=== PATIENT | male | born 1965 | race Caucasian/White ===

== ENCOUNTER 2024-04-06 12:04 | Inpatient (IN) ==
[2024-04-06] MEDS ORDERED: OCTREOTIDE ACETATE 50 MCG in SYRINGE 9.5 ML IV STA (12:36)
--- NOTE | 2024-04-06 12:41 | Emergency Department Note ---
Impression & Plan Shock, Acute blood loss anemia, Acute hepatic failure, Acute renal failure, Hepatic encephalopathy, Alcoholism, Thrombocytopenia, Hypokalemia ED Provider Note NAME: JIMI CHAMBERS II AGE: 58 SEX: M : 1965 ARRIVES VIA: Walk-In INFORMANT: Patient ED PROVIDER(S): Jon oCx MD CHIEF COMPLAINT: Generalized weakness, lethargy, hypotension, alcoholism, bloody stool PLAN: Disposition: Admit MEDICAL DECISION MAKING: The patient is a 58-year-old gentleman with a past medical history of alcoholism which is longstanding who presents to the emergency department via walk-in accompanied by family for worsening generalized weakness, poor appetite and oral intake, syncope/near syncope over the past couple of weeks where the patient had refused to go see a medical provider but family reports they were finally able to convince him today. They report that the patient developed bloody stools over the past 24 to 48 hours and jaundice. The patient has been seen at [facility] and [facility] in the past but did not want to go to those facilities. They report that the patient may drink 1/5 of whiskey a day. However he has curbed his drinking over the past week due to not feeling well. They deny fevers, cough, congestion, vomiting. 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 On arrival the patient is ill-appearing but no acute distress, afebrile with hypotension in the 80s/50s but improving with IV fluid hydration though still guarded. He is overtly jaundiced with icterus. Abdomen is nondistended and nontender and is soft. Lungs are clear. There is no overt tremulousness or signs of alcohol withdrawal. He is awake but slightly somnolent. He is moving all extremities equally with generalized weakness. He is unable to stand independently out of the wheelchair. Rectal demonstrates maroon/red stool that is Hemoccult positive. EKG is negative for acute ischemia. Chest x-ray negative for acute cardiopulmonary process. WBC 10.6 K with neutrophilia but no left shift. H/H 8.6/24.1 with MCV of 108. INR 1.3. VBG without acidemia with pCO2 mildly below normal range at 37. Chemistry without metabolic acidosis with bicarbonate of 22. Acute renal failure is present with creatinine of 5.09 and BUN of 34. Sodium 127 without significant elevated glucose. Potassium 2.9 and Magnesium 1.9 with IV repletion initiated. Initial lactic acid 4.5 with repeat following 2 L of normal saline downtrending to 3.6. Ammonia is not elevated. UA demonstrates positive nitrites however no WBCs or bacteria and with epithelial cells present. Medical alcohol was 26.4 in the setting of alcoholism placing the patient at risk for alcohol withdrawal. Respiratory BioFire was negative. Given the patient acute renal failure noncontrast CT imaging was obtained with report pending. Patient was treated with 30cc/kg IVF with NSS and given persistence of low blood pressure in the setting of GI bleeding patient did consent for transfusion and so 1 unit of PRBCs initiated as well as 1 unit of platelets given platelets below 50K. Appreciate blood bank assistance who did order 2 additional units platelets for emergent delivery given the patient's critical status. Protonix and octreotide bolus and drip also initiated. IV thiamine administered. Empiric antibiotic coverage with IV Zosyn initiated. Case was discussed with Dr. Dallas, [facility] hospitalist, who evaluated the patient for admission. Subsequently CT of the head negative for acute abnormalities. CT of the chest negative for acute abnormalities. Advanced atherosclerotic disease of the coronary arteries and aorta is described. CT of the abdomen pelvis demonstrates features hepatic cirrhosis with mild perihepatic ascites and small amount of free fluid in the superior pelvis. Cholelithiasis is noted with numerous gallstones present. No description of ductal dilatation or evidence of large varicosities on this noncontrast study. Per Dr. Dallas's discussion with GI on-call, Dr Montenegro, recommendation were for transfer given his critical state as patient may require additional management not available at this facility such as TIPS. Appreciate consultations and recommendations. Initially, patient and family did agree with this plan and transfer process was [place] [facility] Levophed was initiated due to persistence of hypotension despite volume resuscitation. Albumin ordered per hospitalist service. Patient was accepted for transfer with bed assignment pending. However in the interim patient's family did further convene and had decided that they preferred to proceed with focus on comfort. They did discuss this with Dr. Dallas who will admit the patient to this facility for palliative care. Further management per admitting team. Triage Nursing notes reviewed and agree them. Prior/external medical records reviewed Vital Signs: reviewed Differential diagnosis: Sepsis, UTI, pneumonia, metabolic, electrolyte abnormalities, cardiac sources, intracerebral event, toxicologic, neurologic, as well as other pathologies. ER treatment provided: See below. Diagnostics interpreted by me: ECG: Sinus rhythm with PACs, 81 bpm, ST and T wave abnormality, no overt ST elevation, QTc 550, QRS 110. Cardiac Monitoring: An order for continuous cardiac monitoring was placed and demonstrated Sinus rhythm with PACs, 81 bpm,. Laboratory studies: See below Imaging studies: See below Consultation(s): Dr. Dallas, [facility] hospitalist. HPI: The patient is a 58-year-old gentleman with a past medical history of alcoholism which is longstanding who presents to the emergency department via walk-in accompanied by family for worsening generalized weakness, poor appetite and oral intake, syncope/near syncope over the past couple of weeks where the patient had refused to go see a medical provider but family reports they were finally able to convince him today. They report that the patient developed bloody stools over the past 24 to 48 hours and jaundice. The patient has been seen at [facility] and [facility] in the past but did not want to go to those facilities. They report that the patient may drink 1/5 of whiskey a day. However he has curbed his drinking over the past week due to not feeling well. They deny fevers, cough, congestion, vomiting. 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 ROS: See above HPI for pertinent positives & negatives. A total of 10 systems reviewed and were otherwise negative. VITALS:See Below PHYSICAL EXAMINATION: GENERAL: Awake, alert, ill-appearing, in no distress HENT: Normocephalic, atraumatic. Oropharynx with dry mucous membranes and otherwise unremarkable. EYES: Normal conjunctiva. Sclera icteric. NECK: Supple. No nuchal rigidity. FROM. No JVD. RESPIRATORY: Clear to auscultation. CARDIAC: Regular rate, normal rhythm. Extremities warm and well perfused. Pulses equal. ABDOMEN: Soft, non-distended. No tenderness to palpation. No rebound or guarding. RECTAL: Maroon, reddish stool. Perianal area is excoriated. MUSCULOSKELETAL: Chest examination reveals no tenderness. The back is symmetrical on inspection without obvious abnormality. There is no CVA tenderness to palpation. No joint edema. LOWER EXTREMITIES: Calves are equal size bilaterally and non-tender. No edema. No discoloration. NEURO: Somnolent but awake, watching TV. No focal sensory or motor deficits noted. No overt asterixis. No overt tremulousness. SKIN: Jaundice noted. ED COURSE: Critical Care: I have personally spent greater than 125 minutes of critical care time in the direct management of this patient. This includes bedside care, interpretation of diagnostic studies, and testing, discussion with consultants, patient, and family members, and other required patient management activities. This 125 minutes is in excess of all separately billable procedures. Jon Cox MD Past Med/Surg History Problem List (Updated 04/06/24 @ 23:52 by Jon Cox MD) Hypokalemia (Acute) Thrombocytopenia (Acute) Alcoholism (Acute) Acute hepatic failure (Acute) Hepatic encephalopathy (Acute) Shock (Acute) Acute blood loss anemia (Acute) Varices of other sites Acute renal failure (Acute) Social History Smoking Status: Current every day smoker Tobacco Type: Cigarettes Second Hand Exposure: Yes; Do You Dip or Chew Tobacco: Yes; Tobacco Cessation Education Requested by Patient: No Hx Alcohol Use: Yes Alcohol type: beer and hard liquor Hx Substance Use: No Preferred Language: Greenlandic Communication Ability: Impaired Nail Tech Required: No Beliefs That Will Affect Care: None Current Living Situation: Spouse and Family Other Information That Helps Us Care for You: No Feels Safe at Home: Yes Safety Concerns: Feels Safe At This Time Assistive Devices: Glasses Allergies Allergies Allergy/AdvReac Type Severity Reaction Status Date / Time No Known Allergies Allergy Unverified 04/06/24 15:48 Home Meds Home Medications Medication Instructions Recorded Confirmed cetirizine 10 mg tablet 10 mg PO UD 04/06/24 04/06/24 losartan 50 mg tablet 10 mg PO DAILY 04/06/24 04/06/24 Results & Data (ED) Vital Signs Vital Signs - 24 hr 04/06/24 12:15 04/06/24 12:33 04/06/24 12:35 Temperature 36.6 C Temperature Source Temporal Artery Scan Pulse Rate 94 H 82 82 Pulse Rate [Apical] Pulse Rate from SpO2 Sensor Pulse Rhythm Regular Respiratory Rate 18 18 Respiratory Effort / Characteristics Non-Labored Spontaneous Respiratory Depth Normal Respiratory Pattern Regular Blood Pressure 89/58 L Blood Pressure [Right Arm] Blood Pressure Mean 68 Blood Pressure Mean [Right Arm] Blood Pressure Position Blood Pressure Position [Right Arm] Pulse Oximetry 97 97 Oxygen Delivery Method Room Air Room Air Sepsis Recent Fever Within 48 Hours No Sepsis New/Unexplained Change in Mental Status N/A Sepsis Action Taken by Nursing No Action Required 04/06/24 12:48 04/06/24 13:30 04/06/24 14:00 Temperature Temperature Source Pulse Rate 76 Pulse Rate [Apical] 77 Pulse Rate from SpO2 Sensor 75 Pulse Rhythm Respiratory Rate 15 15 Respiratory Effort / Characteristics Non-Labored Spontaneous Respiratory Depth Normal Respiratory Pattern Blood Pressure 93/60 L Blood Pressure [Right Arm] 85/50 L Blood Pressure Mean 71 Blood Pressure Mean [Right Arm] 61 Blood Pressure Position Blood Pressure Position [Right Arm] Pulse Oximetry 95 93 Oxygen Delivery Method Room Air Room Air Sepsis Recent Fever Within 48 Hours Sepsis New/Unexplained Change in Mental Status Sepsis Action Taken by Nursing 04/06/24 14:21 04/06/24 15:00 04/06/24 15:15 Temperature Temperature Source Pulse Rate 82 Pulse Rate [Apical] 82 88 Pulse Rate from SpO2 Sensor 83 Pulse Rhythm Respiratory Rate 19 16 25 H Respiratory Effort / Characteristics Respiratory Depth Normal Respiratory Pattern Blood Pressure 96/51 L Blood Pressure [Right Arm] 72/44 L 109/63 Blood Pressure Mean 66 Blood Pressure Mean [Right Arm] 53 78 Blood Pressure Position Blood Pressure Position [Right Arm] Semi-fowlers Pulse Oximetry 98 96 Oxygen Delivery Method Room Air Room Air Sepsis Recent Fever Within 48 Hours Sepsis New/Unexplained Change in Mental Status Sepsis Action Taken by Nursing 04/06/24 15:57 04/06/24 16:11 04/06/24 16:31 Temperature 36.7 C 36.4 C L 36.4 C L Temperature Source Oral Oral Oral Pulse Rate 83 84 84 Pulse Rate [Apical] Pulse Rate from SpO2 Sensor Pulse Rhythm Respiratory Rate 23 17 17 Respiratory Effort / Characteristics Respiratory Depth Respiratory Pattern Blood Pressure 84/49 L 90/50 L 93/57 L Blood Pressure [Right Arm] Blood Pressure Mean 60 63 69 Blood Pressure Mean [Right Arm] Blood Pressure Position Semi-fowlers Blood Pressure Position [Right Arm] Pulse Oximetry 97 93 Oxygen Delivery Method Sepsis Recent Fever Within 48 Hours Sepsis New/Unexplained Change in Mental Status Sepsis Action Taken by Nursing 04/06/24 16:36 04/06/24 16:45 04/06/24 16:50 Temperature 36.3 C L 36.3 C L Temperature Source Oral Oral Pulse Rate 86 84 84 Pulse Rate [Apical] Pulse Rate from SpO2 Sensor Pulse Rhythm Respiratory Rate 23 21 Respiratory Effort / Characteristics Respiratory Depth Respiratory Pattern Blood Pressure 85/49 L 84/69 L Blood Pressure [Right Arm] Blood Pressure Mean 61 74 Blood Pressure Mean [Right Arm] Blood Pressure Position Blood Pressure Position [Right Arm] Pulse Oximetry 93 98 Oxygen Delivery Method Sepsis Recent Fever Within 48 Hours Sepsis New/Unexplained Change in Mental Status Sepsis Action Taken by Nursing 04/06/24 17:05 04/06/24 17:19 04/06/24 17:20 Temperature 36.3 C L Temperature Source Oral Pulse Rate 83 Pulse Rate [Apical] 82 83 Pulse Rate from SpO2 Sensor Pulse Rhythm Regular Respiratory Rate 19 17 21 Respiratory Effort / Characteristics Non-Labored Spontaneous Respiratory Depth Normal Respiratory Pattern Blood Pressure 94/44 L Blood Pressure [Right Arm] 80/50 L 93/65 L Blood Pressure Mean 60 Blood Pressure Mean [Right Arm] 60 74 Blood Pressure Position Semi-fowlers Blood Pressure Position [Right Arm] Pulse Oximetry 96 97 98 Oxygen Delivery Method Room Air Room Air Sepsis Recent Fever Within 48 Hours Sepsis New/Unexplained Change in Mental Status Sepsis Action Taken by Nursing 04/06/24 17:35 Temperature 36.3 C L Temperature Source Oral Pulse Rate 83 Pulse Rate [Apical] Pulse Rate from SpO2 Sensor Pulse Rhythm Respiratory Rate 19 Respiratory Effort / Characteristics Respiratory Depth Respiratory Pattern Blood Pressure 95/52 L Blood Pressure [Right Arm] Blood Pressure Mean 66 Blood Pressure Mean [Right Arm] Blood Pressure Position Blood Pressure Position [Right Arm] Pulse Oximetry 95 Oxygen Delivery Method Sepsis Recent Fever Within 48 Hours Sepsis New/Unexplained Change in Mental Status Sepsis Action Taken by Nursing Laboratory Data 04/06/24 11:23 04/06/24 11:23 Lab Results 04/06/24 04/06/24 04/06/24 Range/Units 11:23 12:50 12:55 WBC 10.66 (4.8-10.8) K/ul RBC 2.22 L (4.70-6.10) M/uL Hgb 8.6 L (14.0-18.0) g/dl POC Hgb (14.0-18.0) g/dl Hct 24.1 L (42.0-52.0) % POC Hct (42-52) % MCV 108.6 H (80.0-100.0) fL MCH 38.7 H (25.0-34.0) pg MCHC 35.7 (32.0-36.0) g/dL RDW Std Deviation 70.4 H (36.4-46.3) fL RDW Coeff of April 18.6 H (11.5-14.5) % Plt Count 48 L (130-400) K/uL Immature Gran % (Auto) 0.8 % Neut % (Auto) 61.3 % Lymph % (Auto) 24.3 % [place] % (Auto) 10.8 % Eos % (Auto) 1.3 % Baso % (Auto) 1.5 % Reticulocyte % (Auto) (0.50-2.00) % Neut # (Auto) 6.54 H (1.40-6.50) K/uL Lymph # (Auto) 2.59 (1.20-3.40) K/uL [place] # (Auto) 1.15 H (0.11-0.59) K/uL Eos # (Auto) 0.14 (0.00-0.50) K/uL Baso # (Auto) 0.16 (0.00-0.20) K/uL Reticulocyte # (0.020-0.100) 10^6/uL Immature Gran # (Auto) 0.08 (0.01-0.20) K/uL Absolute Nucleated RBC 0.05 (0.00-0.12) K/uL Nucleated RBC % (auto) 0.5 % Platelet Estimate Decreased L (Normal) Polychromasia 2+ Anisocytosis Present Tear Drop Cells 1+ PT 14.2 H (9.0-12.0) Seconds INR 1.3 H (0.9-1.1) VBG pH 7.37 (7.36-7.41) VBG pCO2 37 L (38-50) mmHg VBG pO2 31 mmHg VBG HCO3 21 mmol/L VBG O2 Saturation < 60.0 % VBG Base Excess -3.4 mEq/L POC Sodium (135-144) mmol/L Sodium 127 L (136-145) mmol/L POC Potassium (3.3-5.0) mmol/L Potassium 2.9 L (3.5-5.1) mmol/L POC Chloride (101-112) mmol/L Chloride 90 L (98-107) mmol/L Carbon Dioxide 22 (21-32) mmol/L POC Total CO2 (24-31) mmol/L Anion Gap 15 H (3-11) POC Anion Gap (16-25) mmol/L POC BUN (7-18) mg/dl BUN 34 H (6-23) mg/dl Creatinine 5.09 H* (0.6-1.4) mg/dl POC Creatinine (0.6-1.3) mg/dl Est Cr Clr Drug Dosing Not Reportable eGFR 12.38 BUN/Creatinine Ratio 6.7 L (10-20) Glucose 134 H (70-99(Fasting)) mg/dl POC Glucose (other) (70-99) mg/dl Osmolality 280 (280-300) mOsm/kg Lactate 4.5 H* (0.4-2.0) mmol/L Calcium 8.2 L (8.6-10.3) mg/dl POC Ioniz Calcium Maddison (1.12-1.32) mmol/l Magnesium 1.9 (1.7-2.4) mg/dl Iron 167 (35-175) mcg/dl Transferrin 134 L (200-360) mg/dl Ferritin 2696.0 H (8-388) ng/ml Total Bilirubin 9.3 H (0.2-1.0) mg/dl Direct Bilirubin 5.6 H (0-0.2) mg/dl AST 76 H (13-39) U/L ALT 42 (7-52) U/L Alkaline Phosphatase 52 (34-104) U/L Ammonia 25.0 (18-72) umol/L Troponin I High Sens 6.6 (0-20) pg/ml Total Protein 5.6 L (6.0-8.3) gm/dl Albumin 2.7 L (3.4-5.0) gm/dl Lipase 38 (11-82) U/L Vitamin B12 882 (180-914) pg/ml Folate 3.57 L (>5.38) ng/ml Procalcitonin 0.59 H (0-0.5) ng/ml Urine Color Urine Appearance (Clear) Urine pH (4.5-7.5) Ur Specific Mitchells (1.000-1.030) Urine Protein (Negative) Urine Glucose (UA) (Negative) Urine Ketones (Negative) Urine Blood (Negative) Urine Nitrite (Negative) Urine Bilirubin (Negative) Urine Urobilinogen (Negative) Ur Leukocyte Esterase (Negative) Urine WBC (Auto) (0-5) /hpf Urine RBC (Auto) (0-2) /hpf U Hyaline Cast (Auto) (0-2) /lpf U Epithel Cells (Auto) (0-2) /hpf Urine Bacteria (Auto) (None Seen) WBC Casts (None Prsent) /lpf Urine Mucus (None Prsent) Urine Osmolality (500-800) mOsm/kg Ur Random Sodium mmol/L Nasal Screen MRSA (PCR) (Negative) Urine Opiates Screen (Neg) Ur Methadone, Qual (Neg) Urine Fentanyl Screen (Neg) Urine Barbiturates (Neg) Ur Phencyclidine (PCP) (Neg) U Amphetamin/Meth Scrn (Neg) MDMA (Ecstasy) Screen (Neg) U Benzodiazepines Scrn (Neg) Ur Cocaine Metabolite (Neg) U Marijuana (THC) Screen (Neg) Ethyl Alcohol mg/dL (<10.0) mg/dl Adenovirus (PCR) Not Detected (NotDetected) B. pertussis DNA (PCR) Not Detected (NotDetected) B.parapertussis DNA PCR Not Detected (NotDetected) C. pneumoniae DNA (PCR) Not Detected (NotDetected) Coronavirus OC43 (PCR) Not Detected (NotDetected) Coronavirus HKU1 (PCR) Not Detected (NotDetected) Coronavirus 229E (PCR) Not Detected (NotDetected) SARS-CoV-2 (PCR) Not Detected (NotDetected) Coronavirus NL63 (PCR) Not Detected (NotDetected) Human Metapneumovir PCR Not Detected (NotDetected) Influenza Type A (PCR) Not Detected (NotDetected) Influenza Type B (PCR) Not Detected (NotDetected) M. pneumoniae (PCR) Not Detected (NotDetected) Parainfluenza 1 (PCR) Not Detected (NotDetected) Parainfluenza 2 (PCR) Not Detected (NotDetected) Parainfluenza 3 (PCR) Not Detected (NotDetected) Parainfluenza 4 (PCR) Not Detected (NotDetected) RSV (PCR) Not Detected (NotDetected) Entero/Rhino (PCR) Not Detected (NotDetected) Blood Type Blood Type Recheck Antibody Screen Crossmatch 04/06/24 04/06/24 04/06/24 Range/Units 13:01 13:30 13:32 WBC (4.8-10.8) K/ul RBC (4.70-6.10) M/uL Hgb (14.0-18.0) g/dl POC Hgb 8.2 L (14.0-18.0) g/dl Hct (42.0-52.0) % POC Hct 24 L (42-52) % MCV (80.0-100.0) fL MCH (25.0-34.0) pg MCHC (32.0-36.0) g/dL RDW Std Deviation (36.4-46.3) fL RDW Coeff of April (11.5-14.5) % Plt Count (130-400) K/uL Immature Gran % (Auto) % Neut % (Auto) % Lymph % (Auto) % [place] % (Auto) % Eos % (Auto) % Baso % (Auto) % Reticulocyte % (Auto) (0.50-2.00) % Neut # (Auto) (1.40-6.50) K/uL Lymph # (Auto) (1.20-3.40) K/uL [place] # (Auto) (0.11-0.59) K/uL Eos # (Auto) (0.00-0.50) K/uL Baso # (Auto) (0.00-0.20) K/uL Reticulocyte # (0.020-0.100) 10^6/uL Immature Gran # (Auto) (0.01-0.20) K/uL Absolute Nucleated RBC (0.00-0.12) K/uL Nucleated RBC % (auto) % Platelet Estimate (Normal) Polychromasia Anisocytosis Tear Drop Cells PT (9.0-12.0) Seconds INR (0.9-1.1) VBG pH (7.36-7.41) VBG pCO2 (38-50) mmHg VBG pO2 mmHg VBG HCO3 mmol/L VBG O2 Saturation % VBG Base Excess mEq/L POC Sodium 128 L (135-144) mmol/L Sodium (136-145) mmol/L POC Potassium 2.9 L (3.3-5.0) mmol/L Potassium (3.5-5.1) mmol/L POC Chloride 91 L (101-112) mmol/L Chloride (98-107) mmol/L Carbon Dioxide (21-32) mmol/L POC Total CO2 21 L (24-31) mmol/L Anion Gap (3-11) POC Anion Gap 20.0 (16-25) mmol/L POC BUN 27 H (7-18) mg/dl BUN (6-23) mg/dl Creatinine (0.6-1.4) mg/dl POC Creatinine 5.9 H* (0.6-1.3) mg/dl Est Cr Clr Drug Dosing eGFR BUN/Creatinine Ratio (10-20) Glucose (70-99(Fasting)) mg/dl POC Glucose (other) 130 H (70-99) mg/dl Osmolality (280-300) mOsm/kg Lactate (0.4-2.0) mmol/L Calcium (8.6-10.3) mg/dl POC Ioniz Calcium Maddison 1.05 L (1.12-1.32) mmol/l Magnesium (1.7-2.4) mg/dl Iron (35-175) mcg/dl Transferrin (200-360) mg/dl Ferritin (8-388) ng/ml Total Bilirubin (0.2-1.0) mg/dl Direct Bilirubin (0-0.2) mg/dl AST (13-39) U/L ALT (7-52) U/L Alkaline Phosphatase (34-104) U/L Ammonia (18-72) umol/L Troponin I High Sens (0-20) pg/ml Total Protein (6.0-8.3) gm/dl Albumin (3.4-5.0) gm/dl Lipase (11-82) U/L Vitamin B12 (180-914) pg/ml Folate (>5.38) ng/ml Procalcitonin (0-0.5) ng/ml Urine Color Urine Appearance (Clear) Urine pH (4.5-7.5) Ur Specific Mitchells (1.000-1.030) Urine Protein (Negative) Urine Glucose (UA) (Negative) Urine Ketones (Negative) Urine Blood (Negative) Urine Nitrite (Negative) Urine Bilirubin (Negative) Urine Urobilinogen (Negative) Ur Leukocyte Esterase (Negative) Urine WBC (Auto) (0-5) /hpf Urine RBC (Auto) (0-2) /hpf U Hyaline Cast (Auto) (0-2) /lpf U Epithel Cells (Auto) (0-2) /hpf Urine Bacteria (Auto) (None Seen) WBC Casts (None Prsent) /lpf Urine Mucus (None Prsent) Urine Osmolality (500-800) mOsm/kg Ur Random Sodium mmol/L Nasal Screen MRSA (PCR) (Negative) Urine Opiates Screen (Neg) Ur Methadone, Qual (Neg) Urine Fentanyl Screen (Neg) Urine Barbiturates (Neg) Ur Phencyclidine (PCP) (Neg) U Amphetamin/Meth Scrn (Neg) MDMA (Ecstasy) Screen (Neg) U Benzodiazepines Scrn (Neg) Ur Cocaine Metabolite (Neg) U Marijuana (THC) Screen (Neg) Ethyl Alcohol mg/dL 26.4 H (<10.0) mg/dl Adenovirus (PCR) (NotDetected) B. pertussis DNA (PCR) (NotDetected) B.parapertussis DNA PCR (NotDetected) C. pneumoniae DNA (PCR) (NotDetected) Coronavirus OC43 (PCR) (NotDetected) Coronavirus HKU1 (PCR) (NotDetected) Coronavirus 229E (PCR) (NotDetected) SARS-CoV-2 (PCR) (NotDetected) Coronavirus NL63 (PCR) (NotDetected) Human Metapneumovir PCR (NotDetected) Influenza Type A (PCR) (NotDetected) Influenza Type B (PCR) (NotDetected) M. pneumoniae (PCR) (NotDetected) Parainfluenza 1 (PCR) (NotDetected) Parainfluenza 2 (PCR) (NotDetected) Parainfluenza 3 (PCR) (NotDetected) Parainfluenza 4 (PCR) (NotDetected) RSV (PCR) (NotDetected) Entero/Rhino (PCR) (NotDetected) Blood Type A Negative Blood Type Recheck Antibody Screen NEGATIVE Crossmatch See Detail 04/06/24 04/06/24 Range/Units 14:51 15:24 WBC (4.8-10.8) K/ul RBC (4.70-6.10) M/uL Hgb (14.0-18.0) g/dl POC Hgb (14.0-18.0) g/dl Hct (42.0-52.0) % POC Hct (42-52) % MCV (80.0-100.0) fL MCH (25.0-34.0) pg MCHC (32.0-36.0) g/dL RDW Std Deviation (36.4-46.3) fL RDW Coeff of April (11.5-14.5) % Plt Count (130-400) K/uL Immature Gran % (Auto) % Neut % (Auto) % Lymph % (Auto) % [place] % (Auto) % Eos % (Auto) % Baso % (Auto) % Reticulocyte % (Auto) 2.30 H (0.50-2.00) % Neut # (Auto) (1.40-6.50) K/uL Lymph # (Auto) (1.20-3.40) K/uL [place] # (Auto) (0.11-0.59) K/uL Eos # (Auto) (0.00-0.50) K/uL Baso # (Auto) (0.00-0.20) K/uL Reticulocyte # 0.050 (0.020-0.100) 10^6/uL Immature Gran # (Auto) (0.01-0.20) K/uL Absolute Nucleated RBC (0.00-0.12) K/uL Nucleated RBC % (auto) % Platelet Estimate (Normal) Polychromasia Anisocytosis Tear Drop Cells PT (9.0-12.0) Seconds INR (0.9-1.1) VBG pH (7.36-7.41) VBG pCO2 (38-50) mmHg VBG pO2 mmHg VBG HCO3 mmol/L VBG O2 Saturation % VBG Base Excess mEq/L POC Sodium (135-144) mmol/L Sodium (136-145) mmol/L POC Potassium (3.3-5.0) mmol/L Potassium (3.5-5.1) mmol/L POC Chloride (101-112) mmol/L Chloride (98-107) mmol/L Carbon Dioxide (21-32) mmol/L POC Total CO2 (24-31) mmol/L Anion Gap (3-11) POC Anion Gap (16-25) mmol/L POC BUN (7-18) mg/dl BUN (6-23) mg/dl Creatinine (0.6-1.4) mg/dl POC Creatinine (0.6-1.3) mg/dl Est Cr Clr Drug Dosing eGFR BUN/Creatinine Ratio (10-20) Glucose (70-99(Fasting)) mg/dl POC Glucose (other) (70-99) mg/dl Osmolality (280-300) mOsm/kg Lactate 3.6 H* (0.4-2.0) mmol/L Calcium (8.6-10.3) mg/dl POC Ioniz Calcium Maddison (1.12-1.32) mmol/l Magnesium (1.7-2.4) mg/dl Iron (35-175) mcg/dl Transferrin (200-360) mg/dl Ferritin (8-388) ng/ml Total Bilirubin (0.2-1.0) mg/dl Direct Bilirubin (0-0.2) mg/dl AST (13-39) U/L ALT (7-52) U/L Alkaline Phosphatase (34-104) U/L Ammonia (18-72) umol/L Troponin I High Sens (0-20) pg/ml Total Protein (6.0-8.3) gm/dl Albumin (3.4-5.0) gm/dl Lipase (11-82) U/L Vitamin B12 (180-914) pg/ml Folate (>5.38) ng/ml Procalcitonin (0-0.5) ng/ml Urine Color [place] Urine Appearance Cloudy A (Clear) Urine pH 5.0 (4.5-7.5) Ur Specific [place] 1.023 (1.000-1.030) Urine Protein Trace H (Negative) Urine Glucose (UA) Negative (Negative) Urine Ketones Negative (Negative) Urine Blood Negative (Negative) Urine Nitrite Positive A (Negative) Urine Bilirubin 3+ H (Negative) Urine Urobilinogen Negative (Negative) Ur Leukocyte Esterase 1+ H (Negative) Urine WBC (Auto) 0-5 (0-5) /hpf Urine RBC (Auto) 6-10 H (0-2) /hpf U Hyaline Cast (Auto) >20 H (0-2) /lpf U Epithel Cells (Auto) 11-20 H (0-2) /hpf Urine Bacteria (Auto) None Seen (None Seen) WBC Casts Present A (None Prsent) /lpf Urine Mucus Present A (None Prsent) Urine Osmolality 291 L (500-800) mOsm/kg Ur Random Sodium 11 mmol/L Nasal Screen MRSA (PCR) Negative (Negative) Urine Opiates Screen Neg (Neg) Ur Methadone, Qual Neg (Neg) Urine Fentanyl Screen Neg (Neg) Urine Barbiturates Neg (Neg) Ur Phencyclidine (PCP) Neg (Neg) U Amphetamin/Meth Scrn Neg (Neg) MDMA (Ecstasy) Screen Neg (Neg) U Benzodiazepines Scrn Neg (Neg) Ur Cocaine Metabolite Neg (Neg) U Marijuana (THC) Screen Neg (Neg) Ethyl Alcohol mg/dL (<10.0) mg/dl Adenovirus (PCR) (NotDetected) B. pertussis DNA (PCR) (NotDetected) B.parapertussis DNA PCR (NotDetected) C. pneumoniae DNA (PCR) (NotDetected) Coronavirus OC43 (PCR) (NotDetected) Coronavirus HKU1 (PCR) (NotDetected) Coronavirus 229E (PCR) (NotDetected) SARS-CoV-2 (PCR) (NotDetected) Coronavirus NL63 (PCR) (NotDetected) Human Metapneumovir PCR (NotDetected) Influenza Type A (PCR) (NotDetected) Influenza Type B (PCR) (NotDetected) M. pneumoniae (PCR) (NotDetected) Parainfluenza 1 (PCR) (NotDetected) Parainfluenza 2 (PCR) (NotDetected) Parainfluenza 3 (PCR) (NotDetected) Parainfluenza 4 (PCR) (NotDetected) RSV (PCR) (NotDetected) Entero/Rhino (PCR) (NotDetected) Blood Type Blood Type Recheck A Negative Antibody Screen Crossmatch Administered Medications Hydromorphone HCl (Hydromorphone Inj 0.5 Mg/0.5 Ml Syr) 0.5 mg IV Q15M PRN PRN Reason: Pain or Respiratory Distress Stop: 04/20/24 17:41 Last Admin: 04/06/24 22:59 Dose: 0.5 mg Documented By: Admin: 04/06/24 19:28 Dose: 0.5 mg Documented By: Admin: 04/06/24 19:01 Dose: 0.5 mg Documented By: NINFA Lorazepam (Lorazepam 2 Mg/1 Ml Vial) 0.5 mg IV Q4H PRN PRN Reason: Anxiety/Agitation Stop: 05/06/24 17:41 Last Admin: 04/06/24 23:08 Dose: 0.5 mg Documented By: Admin: 04/06/24 18:31 Dose: 0.5 mg Documented By: NINFA Discontinued Medications Sodium Chloride (Nss) 1,000 mls @ 999 mls/hr IV .Q1H1M ANDREW Stop: 04/06/24 14:45 Last Infusion: 04/06/24 16:31 Dose: Infused Documented By: Admin: 04/06/24 15:30 Dose: 999 mls/hr Documented By: Infusion: 04/06/24 14:38 Dose: Infused Documented By: Infusion: 04/06/24 13:50 Dose: 999 mls/hr Documented By: Infusion: 04/06/24 13:25 Dose: 0 mls/hr Documented By: Admin: 04/06/24 13:07 Dose: 999 mls/hr Documented By: CHONG Thiamine HCl 500 mg/ Sodium (Chloride) 55 mls @ 210 mls/hr IV NOW STA Stop: 04/06/24 12:48 Last Infusion: 04/06/24 13:55 Dose: Infused Documented By: Admin: 04/06/24 13:37 Dose: 210 mls/hr Documented By: NINFA Pantoprazole Sodium 40 mg/ (Dextrose) 100 mls @ 20 mls/hr IV Q5H ANDREW Stop: 05/06/24 12:59 Last Admin: 04/06/24 18:00 Dose: Not Given Documented By: Infusion: 04/06/24 16:28 Dose: 0 mg/hr, 0 mls/hr Documented By: Admin: 04/06/24 14:08 Dose: 8 mg/hr, 20 mls/hr Documented By: NINFA Pantoprazole Sodium 80 mg/ (Dextrose) 120 mls @ 480 mls/hr IV NOW ONE Stop: 04/06/24 12:50 Last Infusion: 04/06/24 14:00 Dose: Infused Documented By: Admin: 04/06/24 13:45 Dose: 480 mls/hr Documented By: NINFA Octreotide Acetate 500 mcg/ (Sodium Chloride) 100.5 mls @ 10.05 mls/hr IV .Q10H ANDREW Stop: 05/06/24 12:44 Last Infusion: 04/06/24 18:13 Dose: 0 mcg/hr, 0 mls/hr Documented By: Admin: 04/06/24 13:37 Dose: 50 mcg/hr, 10.1 mls/hr Documented By: NINFA Sodium Chloride (Nss) 1,000 mls @ 999 mls/hr IV .Q1H1M ONE Stop: 04/06/24 13:41 Last Infusion: 04/06/24 14:39 Dose: Infused Documented By: Infusion: 04/06/24 13:55 Dose: 999 mls/hr Documented By: Infusion: 04/06/24 13:25 Dose: 0 mls/hr Documented By: Admin: 04/06/24 12:57 Dose: 999 mls/hr Documented By: CHONG Octreotide Acetate 50 mcg/ (Syringe) 10 mls @ 3 mls/min IV ONE STA Stop: 04/06/24 13:57 Last Admin: 04/06/24 14:51 Dose: 3 mls/min Documented By: MARANDA Magnesium Sulfate/Dextrose (Magnesium Sulfate / D5w) 1 gm in 100 mls @ 100 mls/hr IV NOW STA Stop: 04/06/24 15:24 Last Infusion: 04/06/24 16:42 Dose: Infused Documented By: Admin: 04/06/24 15:42 Dose: 100 mls/hr Documented By: MARANDA Potassium Chloride (K Den / Wtr) 10 meq in 100 mls @ 100 mls/hr IV Q1H ANDREW Stop: 04/06/24 16:29 Last Admin: 04/06/24 17:44 Dose: Not Given Documented By: Infusion: 04/06/24 16:41 Dose: Infused Documented By: Admin: 04/06/24 15:41 Dose: 100 mls/hr Documented By: MARANDA Piperacillin Sod/Tazobactam Sod (Zosyn) 4.5 gm in 100 mls @ 200 mls/hr IV NOW ONE; Protocol Stop: 04/06/24 15:25 Last Infusion: 04/06/24 17:11 Dose: Infused Documented By: Admin: 04/06/24 16:41 Dose: 200 mls/hr Documented By: NINFA Albumin Human (Albumin 25%) 25 gm in 100 mls @ 50 mls/hr IV Q2H ANDREW Stop: 04/06/24 23:59 Last Admin: 04/06/24 17:59 Dose: Not Given Documented By: Admin: 04/06/24 17:43 Dose: Not Given Documented By: NINFA Norepinephrine Bitartrate (Levophed/D5w) 4 mg in 250 mls @ 18.3 mls/hr IV .[id number] ANDREW; Protocol Stop: 05/06/24 15:59 Last Titration: 04/06/24 18:13 Dose: 0 mcg/kg/min, 0 mls/hr Documented By: NINFA Co-signed By: MARANDA Titration: 04/06/24 16:43 Dose: 0.07 mcg/kg/min, 25.6 mls/hr Documented By: NINFA Co-signed By: BRITTNY Admin: 04/06/24 16:24 Dose: 0.05 mcg/kg/min, 18.3 mls/hr Documented By: NINFA Co-signed By: BRITTNY Lorazepam (Lorazepam 2 Mg/1 Ml Vial) 2 mg IV NOW STA Stop: 04/06/24 14:16 Last Admin: 04/06/24 14:56 Dose: 2 mg Documented By: MARANDA Miscellaneous (Stat Iv/Im) 1 each N/A NOW STA Stop: 04/06/24 12:37 Last Admin: 04/06/24 13:44 Dose: Not Given Documented By: NINFA Hillaneous (Stat Iv Infusion Titration Per Protocol) 1 each N/A NOW STA; Protocol Stop: 04/06/24 16:01 Last Admin: 04/06/24 17:12 Dose: Not Given Documented By: NINFA Pantoprazole Sodium (Pantoprazole Bolus/Drip) 1 each IV NOW STA Stop: 04/06/24 12:37 Last Admin: 04/06/24 13:41 Dose: Not Given Documented By: Imaging Data Radiologist's Impression: Chest X-Ray 04/06/24 12:33 XR chest 1V portable CLINICAL HISTORY: Sepsis. COMPARISON STUDY: No previous studies for comparison. FINDINGS: There is no pneumothorax or pleural effusion. Multiple old right rib fractures are incidentally noted. The heart is mildly enlarged. There is no consolidation or evidence for pulmonary edema. Mid shaft fracture of the left clavicle is also likely old. IMPRESSION: No acute cardiopulmonary findings. ACT 112: Negative or not required by law. Electronically signed by: Filipe Tenorio M.D. 04/06/2024 1:47 PM Abdomen/Pelvis CT 04/06/24 13:23 EXAMINATION: Abdomen and pelvis CT without CLINICAL HISTORY: PRIORS: None TECHNIQUE: Contiguous axial images were obtained through the abdomen and pelvis without the use of intravenous contrast. No sagittal or coronal reformations. FINDINGS: The liver is enlarged with extremely heterogeneous low-attenuation appearance. Nodularity of the capsule is noted with enlargement of the caudate lobe representing hepatic cirrhosis. Mild perihepatic ascites present, image 38, series 10. No large varicosities noted. Allowing for the absence of intravenous contrast, numerous gallstones present. The pancreas, spleen, stomach, adrenals are morphologically unremarkable. Advanced atherosclerotic disease of the abdominal aorta. A small hiatal hernia is present. Small nonpathologically enlarged lymph nodes present at the GE junction. No large volume of ascites. Prominent lymph nodes present at the juani hepatitis. No hemoperitoneum or retroperitoneal hemorrhage. Small to moderate amount of free fluid in the pelvis measuring fluid attenuation. The colon is underdistended with a small amount of formed stool present. No dilated loops of bowel or pericolonic inflammatory change. No high density identified in the lumen. Small bowels are not enlarged. Urinary bladder partly distended and morphologically unremarkable. Prostate not enlarged. No pelvic adenopathy. Muscle bulk within normal limits. In bone windows mild osseous demineralization noted. Locally posttraumatic changes of the right hip. IMPRESSION: 1. CT features of hepatic cirrhosis with mild perihepatic ascites and small amount of free fluid in the superior pelvis. 2. No hemoperitoneum or retroperitoneum. No dilated loops of bowel. 3. Cholelithiasis. 4. Advanced atherosclerotic disease. ACT 112: Positive. There are findings on this examination that require communication between the performing entity and the patient following Patient Test Result Information Act ([place] ACT 112) guidelines. . Electronically signed by Sally Osuna 04-06-2024 3:[address] 04/06/24 13:23 EXAMINATION: Chest CT without CLINICAL HISTORY: Hypotensive, lethargic, alcohol use TECHNIQUE: Contiguous axial images were obtained through the chest without the use of intravenous contrast. Sagittal and coronal reformations are supplied. FINDINGS: The chest is well-expanded. No dominant pulmonary nodule, mass or pneumonia. No pneumothorax or pleural effusion. Heart size slightly enlarged. Advanced atherosclerotic disease of the left anterior descending and coronary arteries as well as the aorta. No adenopathy in the chest. In bone windows, no acute or suspicious osseous abnormality. Limited visualization of the upper abdomen shows a cirrhotic liver. The dedicated abdomen CT is dictated under separate heading. IMPRESSION: 1. No CT evidence of an acute or traumatic abnormality in the chest. 2. Advanced atherosclerotic disease of the coronary arteries and aorta. 3. Hepatic cirrhosis at the edge of the [id number]. ACT 112: Positive. There are findings on this examination that require communication between the performing entity and the patient following Patient Test Result Information Act ([place] ACT 112) guidelines. Electronically signed by Sally Osuna 04-06-2024 3:[address] 04/06/24 13:23 EXAMINATION: Head CT without CLINICAL HISTORY: Hypotensive, lethargic, alcohol use PRIORS: None TECHNIQUE: Contiguous axial images were obtained through the head without the use of intravenous contrast. Sagittal and coronal reformations are supplied. FINDINGS: Moderate parenchymal volume loss noted.. Tompkins-white differentiation is preserved. No edema or midline shift. No intra-axial or extra-axial hemorrhage. Ventricles are normal in size and configuration. Brainstem and cerebellum have a normal appearance. Calvarium unremarkable. Paranasal sinuses and mastoid air cells are well-pneumatized. Globes are intact. No retrobulbar abnormality. IMPRESSION: No CT evidence of an acute intracranial abnormality. Electronically signed by Sally Osuna 04-06-2024 3:48 PM Renal Ultrasound 04/06/24 15:51 EXAM: US renal/blad retro comp CLINICAL HISTORY: renal failure TECHNIQUE: A renal ultrasound was performed using grayscale and doppler imaging. COMPARISON: 04/06/2024 13:43:00 TIMBER GIRDLER, CT. FINDINGS: Right Kidney: The right kidney measures 10.2 x 4.8 x 5 cm. No cysts, hydronephrosis, calculi, or masses were identified. Renal parenchymal echogenicity is normal. Cortical thickness: Within normal. Renal pelvis within normal. Left Kidney: The left kidney measures 11.4 x 4.6 x 5.5 cm.No cyst, hydronephrosis, calculi, or masses were identified. Renal parenchymal echogenicity is normal. Cortical thickness: Within normal. Renal pelvis within normal. Urinary bladder: Fishman's catheter is seen in the bladder. The bilateral ureteric jets are not seen at this time On color Doppler normal vascularity of the kidneys was noted. IMPRESSION: Normal renal ultrasound. No evidence of hydronephrosis, or renal masses. The same findings as the same day CT Electronically signed by Lauren Rodriguez 04-06-2024 5:50 PM Discharge Plan Visit Data Chief Complaint: Hypotension Stated Complaint: DEHYDRATION, LOW BP ED Provider: Jon Cox Discharge Problem: Shock, Acute blood loss anemia, Acute hepatic failure, Acute renal failure, Hepatic encephalopathy, Alcoholism, Thrombocytopenia, Hypokalemia Patient Disposition: Admitted As Inpatient Discharge Instructions Interventions: ED Discharge Assessment Last Done: 04/06/24 20:03 Discharge Problem: Acute hepatic failure Qualifiers: Hepatic coma status: without hepatic coma Qualified Code(s): K72.00 - Acute and subacute hepatic failure without coma Acute renal failure Qualifiers: Acute renal failure type: unspecified Qualified Code(s): N17.9 - Acute kidney failure, unspecified
[2024-04-06] MEDS: SODIUM CHLORIDE 0.9% 1,000 ML IV ONE (12:57)
[2024-04-06 13:00] LABS: INR 1.3 (0.9-1.1); Prothrombin Time 14.2 Seconds (9.0-12.0)
[2024-04-06 13:05] LABS: Base Excess VBG -3.4 mEq/L; HCO3 VBG 21 mmol/L; Oxygen Saturation VBG < 60.0 %; PCO2 VBG 37 mmHg (38-50); PO2 VBG 31 mmHg; pH VBG 7.37 (7.36-7.41)
[2024-04-06] MEDS: SODIUM CHLORIDE 0.9% 1,000 ML IV SCH (13:07)
[2024-04-06 13:14] LABS: iSTAT Creatinine 5.9 mg/dl (0.6-1.3); iSTAT Hemoglobin 8.2 g/dl (14.0-18.0); iSTAT Ionized Calcium 1.05 mmol/l (1.12-1.32); iSTAT Potassium 2.9 mmol/L (3.3-5.0)
[2024-04-06 13:30] LABS: Hematocrit (blood only) 24.1 % (42.0-52.0); Hemoglobin 8.6 g/dl (14.0-18.0); Mean Corpuscular Hemoglobin 38.7 pg (25.0-34.0); Mean Corpuscular Hgb Conc 35.7 g/dL (32.0-36.0); Mean Corpuscular Volume 108.6 fL (80.0-100.0); Nucleated RBC # (auto) 0.05 K/uL (0.00-0.12); Nucleated RBC % (auto) 0.5 %; Platelet Count 48 K/uL (130-400); RDW Coefficient of Variation 18.6 % (11.5-14.5); RDW Standard Deviation 70.4 fL (36.4-46.3); Red Blood Count 2.22 M/uL (4.70-6.10); White Blood Count 10.66 K/ul (4.8-10.8)
[2024-04-06 13:33] LABS: Alanine Aminotransferase 42 U/L (7-52); Albumin Level 2.7 gm/dl (3.4-5.0); Alkaline Phosphatase 52 U/L (34-104); Anion Gap 15 (3-11); Anisocytosis Present; Aspartate Aminotransferase 76 U/L (13-39); BUN Creatinine Ratio 6.7 (10-20); Basophils # (auto) 0.16 K/uL (0.00-0.20); Basophils % (auto) 1.5 %; Bilirubin Direct 5.6 mg/dl (0-0.2); Bilirubin,Total 9.3 mg/dl (0.2-1.0); Blood Urea Nitrogen 34 mg/dl (6-23); Calcium 8.2 mg/dl (8.6-10.3); Carbon Dioxide 22 mmol/L (21-32); Chloride 90 mmol/L (98-107); Eosinophils # (auto) 0.14 K/uL (0.00-0.50); Eosinophils % (auto) 1.3 %; Glucose 134 mg/dl (70-99(Fasting)); Immature Granulocytes # (auto) 0.08 K/uL (0.01-0.20); Immature Granulocytes % (auto) 0.8 %; Lipase 38 U/L (11-82); Lymphocytes # (auto) 2.59 K/uL (1.20-3.40); Lymphocytes % (auto) 24.3 %; Magnesium 1.9 mg/dl (1.7-2.4); Monocytes # (auto) 1.15 K/uL (0.11-0.59); Monocytes % (auto) 10.8 %; Neutrophils # (auto) 6.54 K/uL (1.40-6.50); Neutrophils % (auto) 61.3 %; Platelet Estimate Decreased (Normal); Polychromasia 2+; Potassium 2.9 mmol/L (3.5-5.1); Sodium 127 mmol/L (136-145); Tear Drop Cells 1+; Total Protein 5.6 gm/dl (6.0-8.3); Troponin I High Sensitivity 6.6 pg/ml (0-20)
[2024-04-06] MEDS: OCTREOTIDE ACETATE 500 MCG in SODIUM CHLORIDE 0.9% 100 ML IV SCH (13:37)
[2024-04-06] MEDS: THIAMINE HCL 500 MG in SODIUM CHLORIDE 0.9% 50 ML IV STA (13:37)
[2024-04-06] MEDS: PANTOPRAZOLE BOLUS/DRIP IV STA (13:41)
[2024-04-06] MEDS: STAT IV/IM STA (13:44)
[2024-04-06] MEDS: PANTOprazole 80 MG in DEXTROSE 5% 100 ML IV ONE (13:45)
--- NOTE | 2024-04-06 13:48 | XRay Report ---
XR chest 1V portable CLINICAL HISTORY: Sepsis. COMPARISON STUDY: No previous studies for comparison. FINDINGS: There is no pneumothorax or pleural effusion. Multiple old right rib fractures are incident ally noted. The heart is mildly enlarged. There is no consolidation or evidence for pulmonary edema. Mid shaft fracture of the left clavicle is also likely old. IMPRESSION: No acute cardiopulmonary findings. ACT 112: Negative or not required by law. Electronically signed by: Filipe Tenorio M.D. 04/06/2024 1:47 PM
[2024-04-06 14:05] LABS: Adenovirus PCR Not Detected (NotDetected); Bordetella parapertussis PCR Not Detected (NotDetected); Bordetella pertussis PCR Not Detected (NotDetected); Chlamydia pneumoniae PCR Not Detected (NotDetected); Coronavirus 229E PCR Not Detected (NotDetected); Coronavirus CoV-2 (COVID19)PCR Not Detected (NotDetected); Coronavirus HKU1 PCR Not Detected (NotDetected); Coronavirus NL63 PCR Not Detected (NotDetected); Coronavirus OC43PCR Not Detected (NotDetected); Human Metapneumovirus PCR Not Detected (NotDetected); Influenza A PCR Not Detected (NotDetected); Influenza B PCR Not Detected (NotDetected); Mycoplasma pneumoniae PCR Not Detected (NotDetected); Parainfluenza Virus 1 PCR Not Detected (NotDetected); Parainfluenza Virus 2 PCR Not Detected (NotDetected); Parainfluenza Virus 3 PCR Not Detected (NotDetected); Parainfluenza Virus 4 PCR Not Detected (NotDetected); Respiratory Syncytial VirusPCR Not Detected (NotDetected); Rhinovirus/Enterovirus PCR Not Detected (NotDetected)
[2024-04-06] MEDS: PANTOprazole 40 MG in DEXTROSE 5% MINI-B 100 ML IV SCH (14:08)
[2024-04-06] MEDS ORDERED: SODIUM CHLORIDE 0.9% 100 ML IV PRN (14:12)
[2024-04-06] MEDS ORDERED: SODIUM CHLORIDE 0.9% 50 ML IV PRN (14:12)
[2024-04-06] MEDS: OCTREOTIDE ACETATE 50 MCG in SYRINGE 9.5 ML IV STA (14:51)
[2024-04-06] MEDS: LORazepam 2 MG/1 ML VIAL IV STA (14:56)
[2024-04-06 15:16] LABS: Reticulocyte % 2.3 % (0.50-2.00); Reticulocytes # 0.05 10^6/uL (0.020-0.100)
[2024-04-06 15:21] LABS: Folate (Folic Acid),Ser orPlas 3.57 ng/ml (>5.38)
[2024-04-06] MEDS: POTASSIUM CHLORIDE / WTR 10 MEQ/100 ML PLCT IV SCH (15:41)
[2024-04-06] MEDS: MAGNESIUM SULFATE / D5W 1 GM/100 ML BAG IV STA (15:42)
--- NOTE | 2024-04-06 15:48 | CT Scan Report ---
EXAMINATION: Abdomen and pelvis CT without CLINICAL HISTORY: PRIORS: None TECHNIQUE: Contiguous axial images were obtained through the abdomen and pelvis without the use of intravenous contrast. No sagittal or coronal reformations. FINDINGS: The liver is enlarged with extremely heterogeneous low-attenuation appearance. Nodularity of the capsule is noted with enlargement of the caudate lobe representing hepatic cirrhosis. Mild perihepatic ascites present, image 38, series 10. No large varicosities noted. Allowing for the absence of intravenous contrast, numerous gallstones present. The pancreas, spleen, stomach, adrenals are morphologically unremarkable. Advanced atherosclerotic disease of the abdominal aorta. A small hiatal hernia is present. Small nonpathologically enlarged lymph nodes present at the GE junction. No large volume of ascites. Prominent lymph nodes present at the juani hepatitis. No hemoperitoneum or retroperitoneal hemorrhage. Small to moderate amount of free fluid in the pelvis measuring fluid attenuation. The colon is underdistended with a small amount of formed stool present. No dilated loops of bowel or pericolonic inflammatory change. No high density identified in the lumen. Small bowels are not enlarged. Urinary bladder partly distended and morphologically unremarkable. Prostate not enlarged. No pelvic adenopathy. Muscle bulk within normal limits. In bone windows mild osseous demineralization noted. Locally posttraumatic changes of the right hip. IMPRESSION: 1. CT features of hepatic cirrhosis with mild perihepatic ascites and small amount of free fluid in the superior pelvis. 2. No hemoperitoneum or retroperitoneum. No dilated loops of bowel. 3. Cholelithiasis. 4. Advanced atherosclerotic disease. ACT 112: Positive. There are findings on this examination that require communication between the performing entity and the patient following Patient Test Result Information Act ([place] ACT 112) guidelines. . Electronically signed by Sally Osuna 04-06-2024 3:48 PM
--- NOTE | 2024-04-06 15:50 | CT Scan Report ---
EXAMINATION: Chest CT without CLINICAL HISTORY: Hypotensive, lethargic, alcohol use TECHNIQUE: Contiguous axial images were obtained through the chest without the use of intravenous contrast. Sagittal and coronal reformations are supplied. FINDINGS: The chest is well-expanded. No dominant pulmonary nodule, mass or pneumonia. No pneumothorax or pleural effusion. Heart size slightly enlarged. Advanced atherosclerotic disease of the left anterior descending and coronary arteries as well as the aorta. No adenopathy in the chest. In bone windows, no acute or suspicious osseous abnormality. Limited visualization of the upper abdomen shows a cirrhotic liver. The dedicated abdomen CT is dictated under separate heading. IMPRESSION: 1. No CT evidence of an acute or traumatic abnormality in the chest. 2. Advanced atherosclerotic disease of the coronary arteries and aorta. 3. Hepatic cirrhosis at the edge of the [id number]. ACT 112: Positive. There are findings on this examination that require communication between the performing entity and the patient following Patient Test Result Information Act ([place] ACT 112) guidelines. Electronically signed by Sally Osuna 04-06-2024 3:48 PM
--- NOTE | 2024-04-06 15:50 | CT Scan Report ---
EXAMINATION: Head CT without CLINICAL HISTORY: Hypotensive, lethargic, alcohol use PRIORS: None TECHNIQUE: Contiguous axial images were obtained through the head without the use of intravenous contrast. Sagittal and coronal reformations are supplied. FINDINGS: Moderate parenchymal volume loss noted.. Tompkins-white differentiation is preserved. No edema or midline shift. No intra-axial or extra-axial hemorrhage. Ventricles are normal in size and configuration. Brainstem and cerebellum have a normal appearance. Calvarium unremarkable. Paranasal sinuses and mastoid air cells are well-pneumatized. Globes are intact. No retrobulbar abnormality. IMPRESSION: No CT evidence of an acute intracranial abnormality. Electronically signed by Sally Osuna 04-06-2024 3:48 PM
[2024-04-06 16:00] LABS: Amphetamines+Metham, Urine Neg (Neg); Barbiturates, Urine Neg (Neg); Benzodiazepine, Urine Neg (Neg); Cocaine, Urine Neg (Neg); Fentanyl, Urine Neg (Neg); MDMA (Ecstacy), Urine Neg (Neg); Marijuana, Urine Neg (Neg); Methadone, Urine Neg (Neg); Opiate, Urine Neg (Neg); Phencyclidine, Urine Neg (Neg)
[2024-04-06 16:16] LABS: Appearance Urine Cloudy (Clear); Bacteria Urine Automated None Seen (None Seen); Bilirubin Urine 3+ (Negative); Blood Urine Negative (Negative); Cast Urine Automated >20 /lpf (0-2); Color Urine Orange; Glucose Urine UA Negative (Negative); Ketones Urine Negative (Negative); Leukocyte Esterase Urine 1+ (Negative); Mucus Urine Present (None Prsent); Nitrite Urine Positive (Negative); Protein Urine Trace (Negative); Specific Gravity Urine 1.023 (1.000-1.030); Urobilinogen Urine Negative (Negative); WBC Urine Automated 0-5 /hpf (0-5); White Blood Cell Casts Urine Present /lpf (None Prsent)
[2024-04-06] MEDS: NOREPINEPHRINE/D5W 4 MG/250 ML PLCT IV SCH (16:24)
--- NOTE | 2024-04-06 16:37 | Consultation ---
Date of Consultation April 06, 2024 Assessment & Plan (1) Shock: -unclear if 2/2 hemorrhagic vs distributive vs. septic vs. less likely cardiogenic -all secondary to acute liver failure Plan: -25% albumin, fluids ordered -levophed, MAP target 60-65 -blood and platlets ordered, 1 unit of blood, platelet goal>50 -will need definitive management at tertiary care center, process being engaged by ED -octreotide, protonix drip ordered -empiric zosyn -check BNP, troponin, echo if admitted (2) Acute renal failure: -concern for hepatorenal syndrome, however in setting of shock ATN and prerenal etiologies need ruled out first Plan: -US renal and bladder ordered -garcia placed -will check FeNa -nephrology consult if admitted, will likely need CRRT (3) Varices of other sites: -variceal bleed until proven otherwise -other considerations would be diverticular bleed, less likely anal fissure or other rectal pathology Plan: -octreotdie, PPI drip ordered (4) Acute blood loss anemia: -see above Plan: -goal Hgb of 7 -transfuse empirically given active bleed (5) Hepatic encephalopathy: -patient is not consentable at this time -elevated bilirubin supportive above Plan: -when out of acute situation, start lactulose and rifaxamin (6) Acute hepatic failure: -Meld Na is 34 associated with 53% 3 month mortality -given in acute setting, unclear if acute renal failure is reversible or hepatic failure/variceal bleed Plan: -transfer to higher level of care for hepatology consult -check hepatitis labs, acetaminophen, ferritin Plan Transfer to higher level of care History of Present Illness Requesting Physician: Dr. Cox Reason for Consultation: -acute renal failure History of Present Illness 58-year-old male with past medical history of alcoholism who presents for confusion, jaundice, acute rectal bleed, presyncope/syncope. In the ED given fluid resuscitation, imaging and lab workup consistent with concern for acute renal failure, acute liver failure, active GI bleed, medicine consulted for management assistance. Patient is not consentable at this time, not fully alert and oriented. Next of kin her 2 sons, has fianc, sister in room as well. Patient is declining for the past few weeks. Over the past week he has gotten substantially worse. Patient was resistant to come to the hospital at all. He states that he drinks 8 beers daily and a half a gallon of of whiskey every other day. He stated he has been scared of coming to the hospital, is not engaged in the healthcare system. [facility] minutes spent discussing goals and values with next of kin kids, crow and sister. I explained to them the severity of his illness, including acute renal and liver failure, active variceal bleed until proven otherwise. Discussed that his progress prognosis is poor overall, and requires transfer to a tertiary care center for further workup and management. Management could include but not limited to CRRT and a TIPS procedure if the variceal bleed is not able to be managed. Explained risks and benefits of resuscitation at length, given opportunity to ask questions. Son states that he would be very reluctant to want aggressive measures at the end of his life, would not want to suffer. He did state that he would not want chest compressions this morning, however he was altered at that time. Discussed that this is an acute situation and that while his prognosis is poor, it would be reasonable for transfer to identify options for management. Discussed that would he would be unlikely to survive a resuscitation attempt, however however would be reasonable to use blood pressure support and intubation, even if it was for short time, in hopes of of getting to a tertiary care center. They state they agree with this. Therefore patient is a DO NOT RESUSCITATE with intubation and other procedures still on the table. Allergies Allergy/AdvReac Type Severity Reaction Status Date / Time No Known Allergies Allergy Unverified 04/06/24 15:48 Home Medications Medication Instructions Recorded Confirmed Type cetirizine 10 mg tablet 10 mg PO UD 04/06/24 04/06/24 History losartan 50 mg tablet 10 mg PO DAILY 04/06/24 04/06/24 History Patient History Social History Smoking Status: Current every day smoker Tobacco Type: Cigarettes Preferred Language: Italian Feels Safe at Home: Yes Review of Systems Review of Systems: -unable to answer ROS Physical Exam Physical Exam: Gen: A&O 1 NAD HEENT: NCAT, EOMI, not icteric. External ears normal. No rhinorrhea. Dry mucus membranes, jaundiced Neck: Supple, full range of motion, no observable masses, No meningeal sign. Lungs: No Respiratory distress. CV: RRR, no edema. Abdomen: distended, not tender MSK: No joint swelling, no redness. Skin: jaundiced Neuro: Normal Gait, Grossly intact. Psych: slightly agitated Results & Data Vital Signs (Past 12 Hours) Vital Signs Temp Pulse Pulse Resp BP BP Pulse Ox 04/06/24 15:57 36.7 C 83 23 84/49 L 97 04/06/24 15:15 88 25 H 109/63 04/06/24 15:00 82 16 72/44 L 96 04/06/24 14:21 82 19 96/51 L 98 04/06/24 14:00 76 15 93/60 L 93 04/06/24 13:30 77 15 85/50 L 95 04/06/24 12:48 04/06/24 12:35 82 04/06/24 12:33 82 18 97 04/06/24 12:15 36.6 C 94 H 18 89/58 L 97 O2 Del Method 04/06/24 15:57 04/06/24 15:15 04/06/24 15:00 Room Air 04/06/24 14:21 Room Air 04/06/24 14:00 04/06/24 13:30 Room Air 04/06/24 12:48 Room Air 04/06/24 12:35 04/06/24 12:33 Room Air 04/06/24 12:15 Room Air Laboratory Results -personally reviewed, Labs consistent with acute renal and liver failure, low sodium, low potassium. Significantly elevated creatinine concerning for hepatorenal syndrome. Elevated procalcitonin may be inaccurate in setting of acute renal failure, although SBP must be considered. Medications Administered - Pantoprazole Sodium 40 mg/ (Dextrose) 100 mls @ 20 mls/hr IV Q5H ANDREW Stop: 05/06/24 12:59 Last Infusion: 04/06/24 16:28 Dose: 0 mg/hr, 0 mls/hr Documented By: Admin: 04/06/24 14:08 Dose: 8 mg/hr, 20 mls/hr Documented By: Octreotide Acetate 500 mcg/ (Sodium Chloride) 100.5 mls @ 10.05 mls/hr IV .Q10H ANDREW Stop: 05/06/24 12:44 Last Admin: 04/06/24 13:37 Dose: 50 mcg/hr, 10.1 mls/hr Documented By: Norepinephrine Bitartrate (Levophed/D5w) 4 mg in 250 mls @ 18.3 mls/hr IV .[id number] [facility]; Protocol Stop: 05/06/24 15:59 Last Admin: 04/06/24 16:24 Dose: 0.05 mcg/kg/min, 18.3 mls/hr Documented By: NINFA Co-signed By: NA (2) Acute renal failure Acute renal failure type: unspecified Qualified Code(s): N17.9 - Acute kidney failure, unspecified (6) Acute hepatic failure Hepatic coma status: with hepatic coma Qualified Code(s): K72.01 - Acute and subacute hepatic failure with coma
[2024-04-06] MEDS: PIPERACILLIN/TAZOBACTAM 4.5 GM/100 ML BAG IV ONE (16:41)
[2024-04-06] MEDS: STAT IV Infusion **Titration per Protocol STA (17:12)
[2024-04-06 17:33] LABS: Creatinine Urine Random 514.3 mg/dl
[2024-04-06] MEDS ORDERED: ONDANSETRON INJ 2 MG/ML 2 ML VIAL IV PRN ×2 (17:42→20:53)
[2024-04-06] MEDS: ALBUMIN 25% 25 GM/100 ML VIAL IV SCH (17:43)
--- NOTE | 2024-04-06 17:50 | Ultrasound Report ---
EXAM: US renal/blad retro comp CLINICAL HISTORY: renal failure TECHNIQUE: A renal ultrasound was performed using grayscale and doppler imaging. COMPARISON: 04/06/2024 13:43:00 [employer], CT. FINDINGS: Right Kidney: The right kidney measures 10.2 x 4.8 x 5 cm. No cysts, hydronephrosis, calculi, or masses were identified. Renal parenchymal echogenicity is normal. Cortical thickness: Within normal. Renal pelvis within normal. Left Kidney: The left kidney measures 11.4 x 4.6 x 5.5 cm.No cyst, hydronephrosis, calculi, or masses were identified. Renal parenchymal echogenicity is normal. Cortical thickness: Within normal. Renal pelvis within normal. Urinary bladder: Fishman's catheter is seen in the bladder. The bilateral ureteric jets are not seen at this time On color Doppler normal vascularity of the kidneys was noted. IMPRESSION: Normal renal ultrasound. No evidence of hydronephrosis, or renal masses. The same findings as the same day CT Electronically signed by Lauren Rodriguez 04-06-2024 5:50 PM
[2024-04-06] MEDS: LORazepam 2 MG/1 ML VIAL IV PRN (18:31)
[2024-04-06] MEDS: HYDROmorphone INJ 0.5 MG/0.5 ML SYR IV PRN (19:01)
--- NOTE | 2024-04-06 19:05 | History & Physical Report ---
Date of Service April 06, 2024 Assessment & Plan (1) Shock: Plan: -unclear if 2/2 hemorrhagic vs distributive vs. septic vs. less likely cardiogenic -all secondary to acute liver failure Plan: -see prior note -comfort care at this time -dilaudid for pain, avoid morphine given renal failure -ativan for nausea/vomiting -mouth care ordered -zofran for nausea -discussed GIP potential, family agreeable to hospice referral (2) Acute renal failure: Plan: -concern for hepatorenal syndrome, however in setting of shock ATN and prerenal etiologies need ruled out first Plan: -see prior note -comfort focused care (3) Varices of other sites: Plan: -variceal bleed until proven otherwise -other considerations would be diverticular bleed, less likely anal fissure or other rectal pathology Plan: -comfort focused care (4) Acute blood loss anemia: Plan: -see above Plan: -comfort focused care (5) Hepatic encephalopathy: Plan: -patient is not consentable at this time -elevated bilirubin supportive above Plan: -comfort focused care (6) Acute hepatic failure: Plan: -Meld Na is 34 associated with 53% 3 month mortality -given in acute setting, unclear if acute renal failure is reversible or hepatic failure/variceal bleed Plan: -comfort focused care History of Present Illness Primary Care Provider: NO PCP 58-year-old male with past medical history of alcoholism who presents for confusion, jaundice, acute rectal bleed, presyncope/syncope. In the ED given fluid resuscitation, imaging and lab workup consistent with concern for acute renal failure, acute liver failure, active GI bleed, medicine consulted for jennie herrera assistance. Patient is not consentable at this time, not fully alert and oriented. Next of kin her 2 sons, has fianc, sister in room as well. Patient is declining for the past few weeks. Over the past week he has gotten substantially worse. Patient was resistant to come to the hospital at all. He states that he drinks 8 beers daily and a half a gallon of of whiskey every other day. He stated he has been scared of coming to the hospital, is not engaged in the healthcare system. [facility]annin minutes spent discussing goals and values with next of kin kids, fiance and sister. I explained to them the severity of his illness, including acute renal and liver failure, active variceal bleed until proven otherwise. Discussed that his progress prognosis is poor overall, and requires transfer to a tertiary care center for further workup and management. Management could include but not limited to CRRT and a TIPS procedure if the variceal bleed is not able to be managed. Explained risks and benefits of resuscitation at length, given opportunity to ask questions. Son states that he would be very reluctant to want aggressive measures at the end of his life, would not want to suffer. He did state that he would not want chest compressions this morning, however he was altered at that time. Discussed that this is an acute situation and that while his prognosis is poor, it would be reasonable for transfer to identify options for management. Discussed that would he would be unlikely to survive a resuscitation attempt, however however would be reasonable to use blood pressure support and intubation, even if it was for short time, in hopes of of getting to a tertiary care center. They state they agree with this. Therefore patient is a DO NOT RESUSCITATE with intubation and other procedures still on the table. Additional 30 minutes: After the above conversation, 30 minutes afterwards family had time to process the information and stated he would not want aggressive measures taken at this time. They would like to focus on his comfort. Hospice was explained at length. Discussed that being a insurance benefit and focus on comfort only. When asked about prognosis, without further interventions is likely on the scale of hours to days. They understand this and state he would not want to be transferred to oriented to have any kind of aggressive medical care taken at this time. Discussed trying to get hospice on board now. They are agreeable to a hospice consult and focusing on comfort only at this time. Allergies Allergy/AdvReac Type Severity Reaction Status Date / Time No Known Allergies Allergy Unverified 04/06/24 15:48 Home Medications Medication Instructions Recorded Confirmed Type cetirizine 10 mg tablet 10 mg PO UD 04/06/24 04/06/24 History losartan 50 mg tablet 10 mg PO DAILY 04/06/24 04/06/24 History Past Med/Surg History Problem List Acute hepatic failure Hepatic encephalopathy Shock Acute blood loss anemia Varices of other sites Acute renal failure Social History Smoking Status: Current every day smoker Tobacco Type: Cigarettes Preferred Language: Algerian Feels Safe at Home: Yes Review of Systems Review of Systems: -unable to endorse symptoms Physical Exam Physical Exam: Gen: A&O 1 NAD HEENT: NCAT, EOMI, not icteric. External ears normal. No rhinorrhea. Dry mucus membranes, jaundiced Neck: Supple, full range of motion, no observable masses, No meningeal sign. Lungs: No Respiratory distress. CV: RRR, no edema. Abdomen: distended, not tender MSK: No joint swelling, no redness. Skin: jaundiced Neuro: Normal Gait, Grossly intact. Psych: slightly agitated Results & Data Results & Data Vital Signs (Past 12 Hours) Vital Signs Temp Pulse Pulse Resp BP BP Pulse Ox 04/06/24 17:35 36.3 C L 83 19 95/52 L 95 04/06/24 17:20 83 21 93/65 L 98 04/06/24 17:19 82 17 80/50 L 97 04/06/24 17:05 36.3 C L 83 19 94/44 L 96 04/06/24 16:50 36.3 C L 84 21 84/69 L 98 04/06/24 16:45 36.3 C L 84 23 85/49 L 93 04/06/24 16:36 86 04/06/24 16:31 36.4 C L 84 17 93/57 L 04/06/24 16:11 36.4 C L 84 17 90/50 L 93 04/06/24 15:57 36.7 C 83 23 84/49 L 97 04/06/24 15:15 88 25 H 109/63 04/06/24 15:00 82 16 72/44 L 96 04/06/24 14:21 82 19 96/51 L 98 04/06/24 14:00 76 15 93/60 L 93 04/06/24 13:30 77 15 85/50 L 95 04/06/24 12:48 04/06/24 12:35 82 04/06/24 12:33 82 18 97 04/06/24 12:15 36.6 C 94 H 18 89/58 L 97 O2 Del Method 04/06/24 17:35 04/06/24 17:20 Room Air 04/06/24 17:19 Room Air 04/06/24 17:05 04/06/24 16:50 04/06/24 16:45 04/06/24 16:36 04/06/24 16:31 04/06/24 16:11 04/06/24 15:57 04/06/24 15:15 04/06/24 15:00 Room Air 04/06/24 14:21 Room Air 04/06/24 14:00 04/06/24 13:30 Room Air 04/06/24 12:48 Room Air 04/06/24 12:35 04/06/24 12:33 Room Air 04/06/24 12:15 Room Air Laboratory Results -personally reviewed, Labs consistent with acute renal and liver failure, low sodium, low potassium. Significantly elevated creatinine concerning for hepatorenal syndrome. Elevated procalcitonin may be inaccurate in setting of acute renal failure, although SBP must be considered. Medications Administered Hydromorphone HCl (Hydromorphone Inj 0.5 Mg/0.5 Ml Syr) 0.5 mg IV Q15M PRN PRN Reason: Pain or Respiratory Distress Stop: 04/20/24 17:41 Last Admin: 04/06/24 19:01 Dose: 0.5 mg Documented By: Pantoprazole Sodium 40 mg/ (Dextrose) 100 mls @ 20 mls/hr IV Q5H [facility] Stop: 05/06/24 12:59 Last Admin: 04/06/24 18:00 Dose: Not Given Documented By: Infusion: 04/06/24 16:28 Dose: 0 mg/hr, 0 mls/hr Documented By: Admin: 04/06/24 14:08 Dose: 8 mg/hr, 20 mls/hr Documented By: Octreotide Acetate 500 mcg/ (Sodium Chloride) 100.5 mls @ 10.05 mls/hr IV .Q10H ANDREW Stop: 05/06/24 12:44 Last Infusion: 04/06/24 18:13 Dose: 0 mcg/hr, 0 mls/hr Documented By: Admin: 04/06/24 13:37 Dose: 50 mcg/hr, 10.1 mls/hr Documented By: Albumin Human (Albumin 25%) 25 gm in 100 mls @ 50 mls/hr IV Q2H ANDREW Stop: 04/06/24 23:59 Last Admin: 04/06/24 17:59 Dose: Not Given Documented By: Admin: 04/06/24 17:43 Dose: Not Given Documented By: NINFA Norepinephrine Bitartrate (Levophed/D5w) 4 mg in 250 mls @ 18.3 mls/hr IV .[id number] [facility]; Protocol Stop: 05/06/24 15:59 Last Titration: 04/06/24 18:13 Dose: 0 mcg/kg/min, 0 mls/hr Documented By: NINFA Co-signed By: MARANDA Titration: 04/06/24 16:43 Dose: 0.07 mcg/kg/min, 25.6 mls/hr Documented By: NINFA Co-signed By: BRITTNY Admin: 04/06/24 16:24 Dose: 0.05 mcg/kg/min, 18.3 mls/hr Documented By: NINFA Co-signed By: BRITTNY Lorazepam (Lorazepam 2 Mg/1 Ml Vial) 0.5 mg IV Q4H PRN PRN Reason: Anxiety/Agitation Stop: 05/06/24 17:41 Last Admin: 04/06/24 18:31 Dose: 0.5 mg Documented By: NINFA Code Status & VTE Plan Code Status -full code VTE Prophylaxis Plan VTE Prophylaxis will be ordered: Yes (2) Acute renal failure Acute renal failure type: unspecified Qualified Code(s): N17.9 - Acute kidney failure, unspecified (6) Acute hepatic failure Hepatic coma status: with hepatic coma Qualified Code(s): K72.01 - Acute and subacute hepatic failure with coma
[2024-04-07] MEDS: HYDROmorphone INJ 0.5 MG/0.5 ML SYR IV SCH (08:49)
[2024-04-07] MEDS: LORazepam 2 MG/1 ML VIAL IV SCH (12:37)
--- NOTE | 2024-04-07 12:58 | Electrocardiogram Report ---
Test Reason : Blood Pressure : */* mmHG Vent. Rate : 81 BPM Atrial Rate : 81 BPM P-R Int : 140 ms QRS Dur : 110 ms QT Int : 474 ms P-R-T Axes : 63 70 100 degrees QTcB Int : 550 ms Sinus rhythm with Premature atrial complexes in a pattern of bigeminy Prolonged QT Abnormal ECG No previous ECGs available Confirmed by Ayden Boyer ([id number]) on 04/07/2024 12:57:45 PM Referred By: Confirmed By: Ayden Boyer
--- NOTE | 2024-04-07 13:06 | Hospitalist Progress Note ---
Date of Service April 07, 2024 Assessment & Plan (1) Shock: Plan: -unclear if 2/2 hemorrhagic vs distributive vs. septic vs. less likely cardiogenic -all secondary to acute liver failure Plan: -see prior note -comfort care at this time -dilaudid for pain, schedule q6hrs 0.5mg IV based on 24 hour need -ativan for nausea/vomiting, schedule q6hrs based on 24 hour need -mouth care ordered -zofran for nausea -patient will likely remain inpatient for duration until , unstable for transport (2) Acute renal failure: Plan: -concern for hepatorenal syndrome, however in setting of shock ATN and prerenal etiologies need ruled out first Plan: -see prior note -comfort focused care (3) Varices of other sites: Plan: -variceal bleed until proven otherwise -other considerations would be diverticular bleed, less likely anal fissure or other rectal pathology Plan: -comfort focused care (4) Acute blood loss anemia: Plan: -see above Plan: -comfort focused care (5) Hepatic encephalopathy: Plan: -patient is not consentable at this time -elevated bilirubin supportive above Plan: -comfort focused care (6) Acute hepatic failure: Plan: -Meld Na is 34 associated with 53% 3 month mortality -given in acute setting, unclear if acute renal failure is reversible or hepatic failure/variceal bleed Plan: -comfort focused care Admission and Anticipated Discharge Date Admission Date: April 06, 2024 Subjective Patient seen and examined at bedside. Patient unresponsive at this time, when Ramy-Jenkins respirations noted. Family at the bedside. Patient appears comfortable at this time. Use 6 doses of Dilaudid 0.5 mg IV yesterday, along with 4 doses of IV Ativan. Review of Systems Review of Systems: -unable to endorse Physical Exam Physical Exam: Gen: A&O 0 NAD HEENT: NCAT, EOMI, not icteric. External ears normal. No rhinorrhea. Dry mucus membranes, jaundiced Neck: Supple, full range of motion, no observable masses, No meningeal sign. Lungs: tory jenkins respiratoions noted CV: tachycardic, regular rhythm Abdomen: distended, not tender MSK: No joint swelling, no redness. Skin: jaundiced Results & Data Results & Data Laboratory Results n/a Medications Administered Hydromorphone HCl (Hydromorphone Inj 0.5 Mg/0.5 Ml Syr) 0.5 mg IV Q15M PRN PRN Reason: Pain or Respiratory Distress Stop: 04/20/24 17:41 Last Admin: 04/07/24 06:27 Dose: 0.5 mg Documented By: Admin: 04/07/24 03:10 Dose: 0.5 mg Documented By: Admin: 04/07/24 01:48 Dose: 0.5 mg Documented By: Admin: 04/06/24 22:59 Dose: 0.5 mg Documented By: Admin: 04/06/24 19:28 Dose: 0.5 mg Documented By: Admin: 04/06/24 19:01 Dose: 0.5 mg Documented By: NINFA Hydromorphone HCl (Hydromorphone Inj 0.5 Mg/0.5 Ml Syr) 0.5 mg IV Q6H ANDREW Stop: 04/21/24 07:59 Last Admin: 04/07/24 08:49 Dose: 0.5 mg Documented By: FLAKITA Lorazepam (Lorazepam 2 Mg/1 Ml Vial) 0.5 mg IV Q4H PRN PRN Reason: Anxiety/Agitation Stop: 05/06/24 17:41 Last Admin: 04/07/24 07:44 Dose: 0.5 mg Documented By: Admin: 04/07/24 03:10 Dose: 0.5 mg Documented By: Admin: 04/06/24 23:08 Dose: 0.5 mg Documented By: Admin: 04/06/24 18:31 Dose: 0.5 mg Documented By: NINFA Lorazepam (Lorazepam 2 Mg/1 Ml Vial) 0.5 mg IV Q6 ANDREW Stop: 05/07/24 11:59 Last Admin: 04/07/24 12:37 Dose: 0.5 mg Documented By: BOZENA (2) Acute renal failure Acute renal failure type: unspecified Qualified Code(s): N17.9 - Acute kidney failure, unspecified (6) Acute hepatic failure Hepatic coma status: without hepatic coma Qualified Code(s): K72.00 - Acute and subacute hepatic failure without coma
--- NOTE | 2024-04-08 11:30 | Hospitalist Progress Note ---
Date of Service April 08, 2024 Assessment & Plan (1) Shock: Plan: -unclear if 2/2 hemorrhagic vs distributive vs. septic vs. less likely cardiogenic -all secondary to acute liver failure Plan: -see prior note -comfort care at this time -dilaudid for pain, schedule q6hrs 0.5mg IV based on 24 hour need -ativan for nausea/vomiting, schedule q6hrs based on 24 hour need -mouth care ordered -zofran for nausea -patient will likely remain inpatient for duration until , prognosis on scale of hours to days, high likelihood of today based on exam findings (2) Acute renal failure: Plan: -concern for hepatorenal syndrome, however in setting of shock ATN and prerenal etiologies need ruled out first Plan: -see prior note -comfort focused care (3) Varices of other sites: Plan: -variceal bleed until proven otherwise -other considerations would be diverticular bleed, less likely anal fissure or other rectal pathology Plan: -comfort focused care (4) Acute blood loss anemia: Plan: -see above Plan: -comfort focused care (5) Hepatic encephalopathy: Plan: -patient is not consentable at this time -elevated bilirubin supportive above Plan: -comfort focused care (6) Acute hepatic failure: Plan: -Meld Na is 34 associated with 53% 3 month mortality -given in acute setting, unclear if acute renal failure is reversible or hepatic failure/variceal bleed Plan: -comfort focused care Admission and Anticipated Discharge Date Admission Date: April 06, 2024 Subjective Patient seen and examined at bedside. Family at bedside. Patient showing all 5 signs of terminal decline ( rattle, mottling, weak radial pulse, nasolabial fold flattening, breathing changes). Family discussing taking him home today, will let team know thoughts. Prognosis is on scale of hours to days, with significant chance patient dies today. Review of Systems Review of Systems: -unable to endorse due to status Physical Exam Physical Exam: Gen: A&O 0 NAD HEENT: NCAT, EOMI, not icteric. External ears normal. No rhinorrhea. Dry mucus membranes, jaundiced Neck: Supple, full range of motion, no observable masses, No meningeal sign. Lungs: tory grimaldo respirations noted, rattle noted CV: tachycardic, regular rhythm Abdomen: distended, not tender MSK: No joint swelling, no redness. weak radial pulse Skin: jaundiced (2) Acute renal failure Acute renal failure type: unspecified Qualified Code(s): N17.9 - Acute kidney failure, unspecified (6) Acute hepatic failure Hepatic coma status: without hepatic coma Qualified Code(s): K72.00 - Acute and subacute hepatic failure without coma
[2024-04-08] MEDS: ATROPINE SULFATE 1% OP SOLN 5 ML BTL SL PRN (23:55)
[2024-04-09] MEDS ORDERED: STAT IV Infusion **Titration per Protocol STA (09:26)
[2024-04-09] MEDS: HYDROmorphone 100 MG/100 ML BAG IV SCH (10:05)
[2024-04-09] MEDS: HYDROmorphone BOLUS from BAG IV PRN (11:25)
--- NOTE | 2024-04-09 15:40 | Death Pronouncement Note ---
Date of Service April 09, 2024 Pronouncement Note Admission Date April 06, 2024 Date and Time of Date of : 04/09/24 Time of : 14:55 Summary Time of : 04/09/2024 at 1455 hrs Cause of : Likely distributive shock in the setting of acute liver failure. Additional Data Confirmation of : no pulse, no respirations, no heart sounds and pupils fixed and dilated Family: at bedside Attending physician: Kamran Man MD Was code activated?: No Autopsy requested?: No
--- NOTE | 2024-04-09 15:44 | Discharge Summary ---
Date of Service April 09, 2024 Admission HPI Per Admitting Provider 58-year-old male with past medical history of alcoholism who presents for confusion, jaundice, acute rectal bleed, presyncope/syncope. In the ED given fluid resuscitation, imaging and lab workup consistent with concern for acute renal failure, acute liver failure, active GI bleed, medicine consulted for management assistance. Patient is not consentable at this time, not fully alert and oriented. Next of kin her 2 sons, has fino, sister in room as well. Patient is declining for the past few weeks. Over the past week he has gotten substantially worse. Patient was resistant to come to the hospital at all. He states that he drinks 8 beers daily and a half a gallon of of whiskey every other day. He stated he has been scared of coming to the hospital, is not engaged in the healthcare system. [facility] minutes spent discussing goals and values with next of kin kids, crow and sister. I explained to them the severity of his illness, including acute renal and liver failure, active variceal bleed until proven otherwise. Discussed that his progress prognosis is poor overall, and requires transfer to a tertiary care center for further workup and management. Management could include but not limited to CRRT and a TIPS procedure if the variceal bleed is not able to be managed. Explained risks and benefits of resuscitation at length, given opportunity to ask questions. Son states that he would be very reluctant to want aggressive measures at the end of his life, would not want to suffer. He did state that he would not want chest compressions this morning, however he was altered at that time. Discussed that this is an acute situation and that while his prognosis is poor, it would be reasonable for transfer to identify options for management. Discussed that would he would be unlikely to survive a resuscitation attempt, however however would be reasonable to use blood pressure support and intubation, even if it was for short time, in hopes of of getting to a tertiary care center. They state they agree with this. Therefore patient is a DO NOT RESUSCITATE with intubation and other procedures still on the table. Additional 30 minutes: After the above conversation, 30 minutes afterwards family had time to process the information and stated he would not want aggressive measures taken at this time. They would like to focus on his comfort. Hospice was explained at length. Discussed that being a insurance benefit and focus on comfort only. When asked about prognosis, without further interventions is likely on the scale of hours to days. They understand this and state he would not want to be transferred to oriented to have any kind of aggressive medical care taken at this time. Discussed trying to get hospice on board now. They are agreeable to a hospice consult and focusing on comfort only at this time. Admission Exam Per Admitting Provider Gen: A&O 1 NAD HEENT: NCAT, EOMI, not icteric. External ears normal. No rhinorrhea. Dry mucus membranes, jaundiced Neck: Supple, full range of motion, no observable masses, No meningeal sign. Lungs: No Respiratory distress. CV: RRR, no edema. Abdomen: distended, not tender MSK: No joint swelling, no redness. Skin: jaundiced Neuro: Normal Gait, Grossly intact. Psych: slightly agitated Principal Diagnosis shock acute liver failure Discharge Exam Pupils dilated and fixed. Unresponsive pupillary reflex absent no heart sound no respiratory sounds no limb movements Discharge Data Allergies Allergy/AdvReac Type Severity Reaction Status Date / Time No Known Allergies Allergy Unverified 04/06/24 15:48 Consultations 04/06/24 15:02 ED Decision to Admit Stat Ordered Studies 04/06/24 13:23 CT abd pelvis wo con Stat CT chest diagnostic wo con Stat CT head/brain wo con Stat 04/06/24 15:51 US Renal Bladder [US renal/blad retro comp] Stat Hospital Course (1) Acute hepatic failure: Plan Patient was admitted with shock and acute liver failure. He was also noted to have acute renal failure. He was on comfort measures. He passed 04/09/2024. Time of : 04/09/2024 at 1455 hrs Cause of : Likely distributive shock in the setting of acute liver failure. Home Health Attestation I certify that this patient is under my care and that I, or a physicians supply chain assistant working with me, had a face to-face encounter that meets the home health [id number] encounter requirements with this patient. The encounter with the patient was in whole, or in part, for the following medical condition, which is the primary reason for home health care (list medical condition): I certify that, based on my findings, the following services are medically ne cessary home health services: My clinical findings support the need for the above services because: Further, I certify that my clinical findings support that this patient is homebound (i.e. absences from home require considerable and taxing effort and are for medical reasons or sabianism services or infrequently or of short duration when for other reasons) because: Certification for Home Health Services: Based on the above findings, I certify that this patient is confined to the home and needs intermittent [facility] care, physical therapy and/or speech therapy or continues to need occupational therapy. The patient is under my care, and I have initiated the establishment of the plan of care. This patient will be followed by a physician who will periodically review the plan of care. Total Time Total Time Spent Total Time Spent (In Minutes): 35 Discharge Plan Discharge Items Patient Disposition: Discharge Diagnosis: Time of : 04/09/2024 at 1455 hrs Cause of : Likely distributive shock in the setting of acute liver failure. Other Date/Time: 04/09/24 14:55
== END 2024-04-09 16:15 | disposition expired | DRG 441 ==
LOC: ED 12:04 → 3N 17:46 → SUATTDRO 17:46 → 3N 20:03